=== PATIENT | male | born 1995 | race Caucasian/White ===

== ENCOUNTER 2017-02-09 20:41 | Emergency (ER) | payer BC ==
[~2017-02-09] VITALS: Ht 180.3 cm; Wt 74.1 kg
[2017-02-09 20:44] VITALS: TEMP 36.4; Ht 180.3 cm; Wt 74.1 kg
[2017-02-09 21:17] VITALS: O2SAT 96
[2017-02-09 22:00] VITALS: BP 128/73; PULSE 89; O2SAT 96
[2017-02-09 22:01] LABS: BUN/CREATININE RATIO 15.1 (10-20); CALCIUM 8.5 mg/dl (8.5-10.1); CREATININE 0.92 mg/dl (0.60-1.40); POTASSIUM 3.5 mmol/L (3.5-5.1)
--- NOTE | 2017-02-10 02:52 | EMERGENCY ROOM VISIT NOTE ---
History Report prepared by Scribe: Lucinda Sepulveda Under the Supervision of: Dr. Aaron Gallagher D.O. First contact with patient: 20:48 Chief Complaint: ALCOHOL OVERDOSE Stated Complaint: ALCOHOL Nursing Triage Summary: Pt brought in by EMS from [facility] with alcohol intoxication. Pt was vomiting outside [facility]. No trauma noted. Pt awake and cooperative. Admits to drinking unknown amounts of liquor. Denies any drug use. History of Present Illness The patient is a 21 year old male who presents to the Emergency Room with complaints of an alcohol overdose. 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 He was picked up at a tailgate by EMS after being seen stumbling in a tailgate field. He states he drank approximately 10 shots of liquor in total throughout the entire day. He denies any recent trauma or falls. The patient also denies any headache, change in vision, fevers, chest pain, shortness of breath, nausea, vomiting, diarrhea, pain with urination, and melena. 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 A total of 10 systems reviewed and were otherwise negative. Past Medical & Surgical Medical Problems: (1) No significant past medical history Social History Smoking Status: Never Smoker Alcohol Use: occasionally Drug Use: none Marital Status: single Housing Status: lives with roommate Occupation Status: [employer] student Current/Historical Medications Unable to Obtain Active Prescriptions or Reported Meds Physical Exam Vital Signs Date Time Temp Pulse Resp B/P (MAP) Pulse Ox O2 Delivery O2 Flow Rate FiO2 02/09/17 22:00 89 16 128/73 96 Room Air 02/09/17 21:17 96 Room Air 02/09/17 20:50 95 Room Air 02/09/17 20:48 87 02/09/17 20:44 36.4 85 16 115/49 96 Room Air Physical Exam GENERAL: Patient is laying on left side, smells of alcohol, disheveled, in diaper, in no acute distress, non-toxic. HEAD: normal cephalic, atraumatic EYE EXAM: normal conjunctiva, PERRL and EOM's grossly intact OROPHARYNX: no exudate, no erythema, lips, buccal mucosa, and tongue normal and mucous membranes are moist NECK: supple, no nuchal rigidity, no adenopathy, non-tender CHEST: stable to compression anteriorly and posteriorly LUNGS: clear to auscultation. Normal chest wall mechanics HEART: no murmurs, S1 normal and S2 normal ABDOMEN: abdomen soft, non-tender, normo-active bowel sounds, no masses, no rebound or guarding. PELVIS: stable to compression anteriorly and posteriorly BACK: Back is symmetrical on inspection and there is no deformity, no midline tenderness, no CVA tenderness. UPPER EXTREMITIES: full active and passive range of motion of all joints without tenderness to palpation LOWER EXTREMITIES: full active and passive range of motion of all joints without tenderness to palpation NEURO EXAM: Sleeping but awakens to voice. Alert and oriented to person, place and time. No focal deficits. Medical Decision & Procedures Laboratory Results 02/09/17 21:13 Test 02/09/17 21:13 Anion Gap 11.0 mmol/L (3-11) Est Creatinine Clear Calc Drug Dose 135.4 ml/min Estimated GFR () 139.3 Estimated GFR (Non- 120.2 BUN/Creatinine Ratio 15.1 (10-20) Calcium Level 8.5 mg/dl (8.5-10.1) Ethyl Alcohol mg/dL 227.0 mg/dl (0-3) Laboratory results per my review. ED Course ED COURSE: Vital signs were reviewed and showed normal vital signs. The patients medical record was reviewed The above diagnostic studies were performed and reviewed. ED treatments and interventions as stated above. 2058: The patient was evaluated in room C2. A complete history and physical examination was performed. 2207: Upon reevaluation, the patient is resting comfortably and his parents are at the bedside. I discussed my findings with the patient and he and his parents understand and agree with the treatment plan. Based on the patients age, coexisting illnesses, exam and lab findings the decision to treat as an outpatient was made. The patient remained stable while under my care. The patient appeared well at the time of discharge. Medical Decision Differential diagnosis includes etiologies such as alcohol intoxication, toxicologic, infection, hypoglycemia, electrolyte abnormalities, cardiac sources , intracerebral event, neurologic, as well as others were entertained. Patient is a 89-year-old male that presents to ER as he was found staggering retaliated. He admits to taking 10 shots. Denies any trauma. Physical exam is unremarkable although he is intoxicated. ENT was unremarkable. Alcohol was 227. Patient was monitored for several hours. He was always conversive and appropriate. Parents presented bedside. At that time patient was able to ambulate without difficulty. Parents requested take him home and I felt this was reasonable. Discussed with parent concerning signs and symptoms to watch out for. Parent was instructed to follow up with their PCP and discussed with the parent their option to return to the ED at anytime for persistent or worsening symptoms. The appropriate anticipatory guidance and out-patient management, including indications for return to the emergency department, were explained at length to the parent and understood. Medication Reconcilliation Current Medication List: was personally reviewed by me Blood Pressure Screening Patient's blood pressure: Normal blood pressure Blood pressure disposition: Did not require urgent referral Impression Primary Impression: Alcohol intoxication Additional Impression: Alcohol abuse Scribe Attestation The scribe's documentation has been prepared under my direction and personally reviewed by me in its entirety. I confirm that the note above accurately reflects all work, treatment, procedures, and medical decision making performed by me. Departure Information Dispostion Home / Self-Care Prescriptions Unable to Obtain Active Prescriptions or Reported Meds Patient Instructions Alcohol Abuse - [facility], [facility]: [employer] Students and Alcohol Related Visits, My [facility] Additional Instructions Please follow up with your primary care doctor with in the next 24 hours. Any worsening of your symptoms, please return to the ED immediately. This includes any fevers greater than 100.4, chest pain, shortness breath, persistent nausea, vomiting, unable to eat or drink, or any other concerning signs or symptoms from your standpoint. Absolutely no driving for the next 12 hours. He should be monitored closely overnight to make sure he has no trouble breathing or persistent vomiting. Problem Qualifiers Primary Impression: Alcohol intoxication Complication of substance-induced condition: uncomplicated Qualified Codes: F10.920 - Alcohol use, unspecified with intoxication, uncomplicated
== END 2017-02-09 22:23 | disposition home or self-care (01) ==
LOC: C.EDC 20:44
DX: F10.920 Alcohol use, unspecified with intoxication, uncomplicated (principal); F10.10 Alcohol abuse, uncomplicated; Y90.7 Blood alcohol level of 200-239 mg/100 ml